=== PATIENT | male | born 1965 | race African-American/Black ===

== ENCOUNTER 2022-10-24 02:11 | Inpatient (IN) | payer BC ==
[2022-10-24] MEDS ORDERED: hydrALAZINE 20 MG/ML SDV IVPUSH ONE (02:41)
[2022-10-24 03:08] LABS: CHLORIDE,CL 103 mmol/L (98-107); SODIUM,NA 142 mmol/L (136-145)
[2022-10-24 03:09] LABS: BARBITURATE SCREEN,URINE NEGATIVE (NEGATIVE); BENZODIAZEPINES SCREEN,URINE NEGATIVE (NEGATIVE); BUPRENORPHINE SCREEN,URINE NEGATIVE (NEGATIVE); METHAMPHETAMINE SCREEN, URINE NEGATIVE (NEGATIVE); THC SCREEN,URINE 50 NG/ML NEGATIVE (NEGATIVE)
[2022-10-24 03:11] LABS: ESTIMATED GFR 54 mL/min (>=60)
[2022-10-24] MEDS ORDERED: Nitroglycerin 0.4 MG Tab.SL SL ONE ×2 (03:17→03:44)
[2022-10-24] MEDS ORDERED: NS with KCl 40mEq 1,000 ML IV SCH (03:30)
[2022-10-24] MEDS ORDERED: hydrALAZINE 20 MG/ML SDV IVPUSH PRN (03:48)
[2022-10-24] MEDS ORDERED: Ondansetron 4 MG Tab.DIS PO PRN (04:09)
[2022-10-24] MEDS ORDERED: Ondansetron 4 MG/2 ML SDV IV PRN (04:09)
[2022-10-24 08:14] LABS: ANION GAP 13.4 mmol/L (5-15)
[2022-10-24] MEDS: Losartan 50 MG Tab PO SCH (09:05)
[2022-10-24] MEDS: Acetaminophen 325 MG Tab PO PRN (10:31)
[2022-10-24] MEDS ORDERED: Hydrochlorothiazide 12.5 MG Cap PO ONE (12:28)
[2022-10-24] MEDS ORDERED: Losartan 50 MG Tab PO ONE ×2 (12:28→14:04)
[2022-10-24] MEDS: amLODIPine 5 MG Tab PO SCH ×2 (19:08→20:23)
[2022-10-24] MEDS: Sodium Chloride 0.9% 10 ML Syringe FLUSH PRN (19:09)
[2022-10-24] MEDS ORDERED: amLODIPine 5 MG Tab PO ONE (21:43)
[2022-10-25] MEDS: Acetaminophen 325 MG Tab PO PRN (01:09)
[2022-10-25] MEDS: Losartan 50 MG Tab PO SCH ×2 (06:27→09:27)
[2022-10-25 08:17] LABS: ANION GAP 12.6 mmol/L (5-15)
[2022-10-25] MEDS ORDERED: Hydrochlorothiazide 12.5 MG Cap PO SCH (09:00)
[2022-10-25] MEDS: hydrALAZINE 25 MG Tab PO SCH ×3 (14:35→22:47)
[2022-10-25] MEDS ORDERED: amLODIPine 10 MG Tab PO ONE (18:30)
[2022-10-25] MEDS ORDERED: hydrALAZINE 25 MG Tab PO SCH (21:00)
[2022-10-25] MEDS: Sodium Chloride 0.9% 10 ML Syringe FLUSH PRN (21:39)
[2022-10-25] MEDS: amLODIPine 10 MG Tab PO SCH (22:12)
[2022-10-26] MEDS: Acetaminophen 325 MG Tab PO PRN (04:39)
[2022-10-26] MEDS: hydrALAZINE 25 MG Tab PO SCH ×4 (06:31→20:00)
[2022-10-26 07:00] LABS: ANION GAP 11.9 mmol/L (5-15)
[2022-10-26] MEDS: Sodium Chloride 0.9% 1,000 ML IV SCH ×2 (08:11→18:00)
[2022-10-26] MEDS: niCARdipine/Normal Saline 20 MG in Premix Bag 1 BAG IV SCH ×6 (08:40→23:09)
[2022-10-26] MEDS ORDERED: Furosemide 20 MG Tab PO SCH (09:00)
[2022-10-26] MEDS ORDERED: Hydrochlorothiazide 25 MG Tab PO SCH (09:00)
[2022-10-26] MEDS: amLODIPine 10 MG Tab PO SCH (20:00)
[2022-10-27] MEDS: niCARdipine/Normal Saline 20 MG in Premix Bag 1 BAG IV SCH ×6 (00:31→19:43)
[2022-10-27] MEDS: Sodium Chloride 0.9% 1,000 ML IV SCH (04:00)
[2022-10-27 07:02] LABS: ANION GAP 11.9 mmol/L (5-15)
[2022-10-27] MEDS: hydrALAZINE 25 MG Tab PO SCH ×3 (08:24→21:06)
[2022-10-27] MEDS: Chlorthalidone 25 MG Tab PO SCH (08:27)
[2022-10-27] MEDS ORDERED: hydrALAZINE 25 MG Tab PO STA (20:59)
[2022-10-27] MEDS: amLODIPine 10 MG Tab PO SCH (21:06)
[2022-10-28 07:26] LABS: ANION GAP 12.9 mmol/L (5-15)
[2022-10-28] MEDS: hydrALAZINE 25 MG Tab PO SCH ×2 (08:03→13:15)
[2022-10-28] MEDS: Chlorthalidone 25 MG Tab PO SCH (08:04)
[2022-10-28] MEDS: amLODIPine 10 MG Tab PO SCH (13:16)
== END 2022-10-28 13:15 | disposition home or self-care (01) | DRG 199 ==
LOC: VM.ED 02:11 → VM.MS 03:55 → OBSVTOIN 10:54 → INTOOBSV 10:54 → OBSVTOIN 10-25 10:54
PROVIDERS: ADMIT Nurse Practitioner Family; ATTEND Nurse Practitioner Family
DX: I16.1 Hypertensive emergency (principal); N17.9 Acute kidney failure, unspecified; R74.8 Abnormal levels of other serum enzymes
CPT/HCPCS: 36415; 70450; 71045; 80048; 80053; 80061; 80305-QW; 80307; 81001; 82150; 82533; 82550; 83036; 83615; 83690; 83735; 83835; 84100; 84244; 84484; 85025; 86140; 93005; 93010; 93975; 96365; 96375; 99223; 99233; 99285-25; A9270-GY; J0360; J2405; J3480; J3490; J7030

== ENCOUNTER 2023-10-11 08:46 | Observation (INO) | payer BC ==
[2023-10-11 09:11] LABS: BASOPHILS PERCENT AUTO 0.2 % (0.2-1.2); EOSINOPHILS PERCENT AUTO 0.2 % (0.0-4.0); HEMATOCRIT 46.8 % (40.0-52.0); HEMOGLOBIN 15.3 g/dL (14.0-18.0); IMMATURE GRAN ABSOLUTE AUTO 0.01 x10^3/uL (0.00-0.07); LYMPHOCYTES ABSOLUTE AUTO 0.6 x10^3/uL (1.0-4.8); LYMPHOCYTES PERCENT AUTO 12.9 % (25.0-50.0); MEAN CORPUSCULAR HEMOGLOBIN 21.5 pg (26.0-32.0); MEAN CORPUSCULAR HGB CONC 32.7 g/dL (32.0-36.0); MEAN CORPUSCULAR VOLUME 65.8 fL (78.0-93.0); MONOCYTES ABSOLUTE AUTO 0.7 x10^3/uL (0.0-0.8); MONOCYTES PERCENT AUTO 15.2 % (2.0-11.0); NEUTROPHILS ABSOLUTE AUTO 3.1 x10^3/uL (1.8-7.7); NEUTROPHILS PERCENT AUTO 71.3 % (50.0-80.0); PLATELET COUNT,PLT 174 x10^3/uL (130-400); RED BLOOD CELL COUNT 7.11 x10^6/uL (4.5-6.0); WHITE BLOOD CELL COUNT,WBC 4.3 x10^3/uL (4.0-10.0)
[2023-10-11 09:28] LABS: PROTHROMBIN TIME 10.5 SEC (9.5-12.2)
[2023-10-11 09:48] LABS: A/G RATIO 0.76; ALANINE AMINOTRANSFERASE,ALT 56 U/L (16-63); ALBUMIN 3.5 g/dL (3.4-5.0); ALKALINE PHOSPHATASE 42 U/L (46-116); ASPARTATE AMNIOTRANSFERASE,AST 82 U/L (15-37); BILIRUBIN TOTAL 0.4 mg/dL (0.2-1.0); BLOOD UREA NITROGEN,BUN 24 mg/dL (7-18); C-REACTIVE PROTEIN 2.04 mg/dL (<=0.50); CALCIUM 8.5 mg/dL (8.5-10.1); CARBON DIOXIDE,CO2 26 mmol/L (21-32); CHLORIDE,CL 85 mmol/L (98-107); CREATININE 1.8 mg/dL (0.70-1.30); GLUCOSE RANDOM 162 mg/dL (70-99); MAGNESIUM 1.9 mg/dL (1.8-2.4); POTASSIUM,K 3.6 mmol/L (3.5-5.1); PROTEIN TOTAL,TP 8.1 g/dL (6.4-8.2); TSH ULTRASENSITIVE 2.671 uIU/mL (0.358-3.74)
[2023-10-11] MEDS ORDERED: Sodium Chloride 0.9% 10 ML Syringe FLUSH PRN (09:48)
[2023-10-11] MEDS ORDERED: Sodium Chloride 0.9% 1,000 ML IV ONE (09:49)
[2023-10-11 09:50] LABS: ANION GAP 13.6 mmol/L (5-15); ESTIMATED GFR 43 mL/min (>=60); SODIUM,NA 121 mmol/L (136-145)
[2023-10-11 09:56] LABS: CORONAVIRUS COVID-19 NAA NEGATIVE (NEGATIVE); INFLUENZA A NAA POSITIVE (NEGATIVE); INFLUENZA B NAA NEGATIVE (NEGATIVE); RESPIRATORY SYNCYTIAL VIR NAA NEGATIVE (NEGATIVE)
[2023-10-11] MEDS ORDERED: Oseltamivir 75 MG Cap PO ONE (10:06)
[2023-10-11] MEDS: Sodium Chloride 0.9% 1,000 ML IV SCH ×2 (12:15→20:58)
[2023-10-11] MEDS: hydrALAZINE 25 MG Tab PO SCH ×2 (13:30→20:58)
[2023-10-11] MEDS: amLODIPine 10 MG Tab PO SCH (20:59)
[2023-10-11] MEDS: atorvaSTATin 10 MG Tab PO SCH (20:59)
[2023-10-11] MEDS: Oseltamivir 30 MG Cap PO SCH (21:01)
[2023-10-12 06:49] LABS: BASOPHILS PERCENT AUTO 0.7 % (0.2-1.2); HEMATOCRIT 43.8 % (40.0-52.0); HEMOGLOBIN 14.7 g/dL (14.0-18.0); IMMATURE GRAN ABSOLUTE AUTO 0.01 x10^3/uL (0.00-0.07); LYMPHOCYTES PERCENT AUTO 34.5 % (25.0-50.0); MEAN CORPUSCULAR HEMOGLOBIN 21.9 pg (26.0-32.0); MEAN CORPUSCULAR HGB CONC 33.6 g/dL (32.0-36.0); MEAN CORPUSCULAR VOLUME 65.3 fL (78.0-93.0); MONOCYTES ABSOLUTE AUTO 0.6 x10^3/uL (0.0-0.8); MONOCYTES PERCENT AUTO 21.5 % (2.0-11.0); NEUTROPHILS ABSOLUTE AUTO 1.2 x10^3/uL (1.8-7.7); NEUTROPHILS PERCENT AUTO 42.9 % (50.0-80.0); RED BLOOD CELL COUNT 6.71 x10^6/uL (4.5-6.0); WHITE BLOOD CELL COUNT,WBC 2.8 x10^3/uL (4.0-10.0)
[2023-10-12] MEDS: Sodium Chloride 0.9% 1,000 ML IV SCH (07:03)
[2023-10-12 07:07] LABS: CALCIUM 7.9 mg/dL (8.5-10.1); CREATININE 1.4 mg/dL (0.70-1.30); EST CRCL DRUG DOSING (CG) 62.19 mL/min; POTASSIUM,K 3.2 mmol/L (3.5-5.1)
[2023-10-12 07:13] LABS: ANION GAP 12.2 mmol/L (5-15)
[2023-10-12 07:49] LABS: PLATELET COUNT,PLT 165 x10^3/uL (130-400)
[2023-10-12] MEDS: Metoprolol Succinate 25 MG Tab.ER PO SCH (09:01)
[2023-10-12] MEDS: Aspirin 81 MG Tab.EC PO SCH (09:01)
[2023-10-12] MEDS: Oseltamivir 30 MG Cap PO SCH ×2 (09:01→21:09)
[2023-10-12] MEDS: hydrALAZINE 25 MG Tab PO SCH ×3 (09:01→21:08)
[2023-10-12] MEDS: Potassium Chloride 20 MEQ Tab.ER PO SCH (09:01)
[2023-10-12] MEDS ORDERED: NS + KCl 20mEq/L 1,000 ML IV SCH (10:15)
[2023-10-12] MEDS ORDERED: Loperamide 2 MG Cap PO PRN (10:29)
[2023-10-12] MEDS: NS + KCl 20mEq/L 1,000 ML IV SCH ×3 (10:54→22:25)
[2023-10-12] MEDS: Benzonatate 100 MG Cap PO PRN ×2 (10:55→21:14)
[2023-10-12] MEDS: Acetaminophen 500 MG Tab PO PRN ×2 (16:23→21:14)
[2023-10-12] MEDS: amLODIPine 10 MG Tab PO SCH (21:09)
[2023-10-12] MEDS: atorvaSTATin 10 MG Tab PO SCH (21:09)
[2023-10-13] MEDS: NS + KCl 20mEq/L 1,000 ML IV SCH (04:11)
[2023-10-13 06:57] LABS: BASOPHILS PERCENT AUTO 0.6 % (0.2-1.2); EOSINOPHILS PERCENT AUTO 0.3 % (0.0-4.0); HEMATOCRIT 43.9 % (40.0-52.0); HEMOGLOBIN 14.2 g/dL (14.0-18.0); IMMATURE GRAN ABSOLUTE AUTO 0.01 x10^3/uL (0.00-0.07); LYMPHOCYTES PERCENT AUTO 29.2 % (25.0-50.0); MEAN CORPUSCULAR HEMOGLOBIN 21.4 pg (26.0-32.0); MEAN CORPUSCULAR HGB CONC 32.3 g/dL (32.0-36.0); MEAN CORPUSCULAR VOLUME 66.2 fL (78.0-93.0); MONOCYTES ABSOLUTE AUTO 0.6 x10^3/uL (0.0-0.8); MONOCYTES PERCENT AUTO 17.4 % (2.0-11.0); NEUTROPHILS ABSOLUTE AUTO 1.8 x10^3/uL (1.8-7.7); NEUTROPHILS PERCENT AUTO 52.2 % (50.0-80.0); PLATELET COUNT,PLT 160 x10^3/uL (130-400); RED BLOOD CELL COUNT 6.63 x10^6/uL (4.5-6.0); WHITE BLOOD CELL COUNT,WBC 3.4 x10^3/uL (4.0-10.0)
[2023-10-13 07:27] LABS: A/G RATIO 0.76; ALBUMIN 2.9 g/dL (3.4-5.0); BILIRUBIN TOTAL 0.3 mg/dL (0.2-1.0); CALCIUM 8.2 mg/dL (8.5-10.1); CREATININE 1.3 mg/dL (0.70-1.30); EST CRCL DRUG DOSING (CG) 65.97 mL/min; POTASSIUM,K 4.3 mmol/L (3.5-5.1); PROTEIN TOTAL,TP 6.7 g/dL (6.4-8.2)
[2023-10-13 07:28] LABS: ANION GAP 13.3 mmol/L (5-15)
[2023-10-13] MEDS: Benzonatate 100 MG Cap PO PRN (10:11)
[2023-10-13] MEDS: Aspirin 81 MG Tab.EC PO SCH (10:11)
[2023-10-13] MEDS: Potassium Chloride 20 MEQ Tab.ER PO SCH (10:11)
[2023-10-13] MEDS: Oseltamivir 30 MG Cap PO SCH (10:11)
[2023-10-13] MEDS: Metoprolol Succinate 25 MG Tab.ER PO SCH (10:11)
[2023-10-13] MEDS: hydrALAZINE 25 MG Tab PO SCH ×2 (10:14→13:39)
[2023-10-13 13:40] VITALS: BP 131/79
[2023-10-13 13:41] VITALS: PULSE 82
== END 2023-10-13 15:05 | disposition home or self-care (01) ==
LOC: VM.ED 08:46 → VM.MS 10:02
PROVIDERS: ADMIT Physician Assistant; ATTEND Physician Assistant
DX: J10.1 Influenza due to other identified influenza virus with other respiratory manifestations (principal); E87.1 Hypo-osmolality and hyponatremia; I10 Essential (primary) hypertension; Z20.822 Contact with and (suspected) exposure to COVID-19; Z79.82 Long term (current) use of aspirin; Z79.899 Other long term (current) drug therapy
CPT/HCPCS: 0241U; 36415; 70450; 71045; 80048; 80053; 83735; 84443; 84484; 85025; 85610; 85730; 86140; 93005; 96361; 96365; 96366; 96376; 99285; A9270-GY; G0378; J3480; J7030